=== PATIENT | female | born 1985 | race Caucasian/White ===

== ENCOUNTER 2017-01-13 08:07 | Emergency (ER) | payer BC, OTHER ==
[~2017-01-13] VITALS: Wt 71.9 kg
[2017-01-13] MEDS ORDERED: KETOROLAC 15 MG INJ IV STA (09:09)
[2017-01-13] MEDS ORDERED: ONDANSETRON 4 MG INJ IV STA (09:09)
--- NOTE | 2017-01-13 09:21 | ERD ---
ER Documentation Chief Complaint Date/Time DATE: 01/13/17 TIME: 09:18 Chief Complaint LEFT SIDE BACKPAIN WITH NAUSEA NO DYSURIA. NO VAG BLEED HPI Patient is a 31-year-old female who presents to the emergency department with left-sided flank pain which is radiating down into her left lower abdomen. Patient states that the pain started last night. Patient describes the pain to be constant and sharp in nature. She states her current pain level is 10 out of 10. Patient denies taking any medication. Patient does report nausea however she denies any vomiting. Patient is report chills however she denies any fevers. Patient states her last mental period was 1 month ago. Patient denies any active vaginal bleeding or vaginal discharge. Patient states her last bowel movement was this morning. She describes her bowel movements to be soft however denies any diarrhea. Patient states that she had Italian food last night for dinner. No recent travel. No recent antibiotics. No sick contacts. ROS All systems reviewed and are negative except as per history of present illness. Medications Home Meds Active Scripts Tamsulosin Hcl* (Flomax*) 0.4 Mg Cap.er.24h, 0.4 MG PO BID, #20 CAP Prov:AGUEDA LEZAMA PA-C 01/13/17 Ibuprofen* (Motrin*) 600 Mg Tab, 600 MG PO Q6, #30 TAB Prov:AGUEDA LEZAMA PA-C 01/13/17 Allergies Allergies: Coded Allergies: No Known Allergy (Unverified , 01/13/17) PMhx/Soc Medical and Surgical Hx: pt denies Surgical Hx History of Surgery: No Anesthesia Reaction: No Hx Neurological Disorder: No Hx Respiratory Disorders: No Hx Cardiac Disorders: No Hx Psychiatric Problems: Yes (Depression) Hx Alcohol Use: No Hx Substance Use: No Hx Tobacco Use: No Smoking Status: Never smoker Physical Exam Vitals Vital Signs Date Time Temp Pulse Resp B/P Pulse Ox O2 Delivery O2 Flow Rate FiO2 01/13/17 11:47 74 18 155/100 99 Room Air 01/13/17 08:15 98.0 80 21 155/89 99 Physical Exam GENERAL: Well-developed, well-nourished female. Appears in no acute distress. HEAD: Normocephalic, atraumatic. EYES: Pupils are equally reactive bilaterally. EOMs grossly intact. No conjunctival erythema. ENT: Moist mucous membranes. No uvula deviation. No kissing tonsils. NECK: Supple. No meningismus. Normal range of motion of the neck. LUNG: Clear to auscultation bilaterally. No rhonchi, wheezing, rales or coarse breath sounds. HEART: Regular rate and rhythm. No murmurs, rubs or gallops. ABDOMEN: No scars, ecchymosis or rashes noted. Soft and nondistended. +TTP in LLQ. Positive bowel sounds in all four quadrants. No rebound tenderness, no guarding. (-) McBurney's point tenderness. L CVA tenderness. BACK: No midline tenderness. EXTREMITIES: Equal pulses bilaterally. No peripheral clubbing, cyanosis or edema. No unilateral leg swelling. NEUROLOGIC: Alert and oriented. Moving all four extremities without any difficulty. Normal speech. Steady gait. SKIN: Normal color. Warm and dry. No rashes or lesions. Result Diagram: 01/13/1792401/13/1725 Results 24 hrs Laboratory Tests Test 01/13/17 09:25 Alanine Aminotransferase (ALT/SGPT) 23IU/L Albumin 4.4g/dl Albumin/Globulin Ratio 1.25 Alkaline Phosphatase 89IU/L Anion Gap 18 Aspartate Amino Transf (AST/SGOT) 18IU/L Basophils # 0.110^3/ul Basophils % 0.6% Blood Urea Nitrogen 12mg/dl Calcium Level 9.2mg/dl Carbon Dioxide Level 23mmol/L Chloride Level 103mmol/L Creatinine 0.73mg/dl Direct Bilirubin 0.00mg/dl Eosinophils # 0.110^3/ul Eosinophils % 0.7% Globulin 3.50g/dl Glucose Level 114mg/dl Hematocrit 41.0% Hemoglobin 13.9g/dl Indirect Bilirubin 0.2mg/dl Lipase 133U/L Lymphocytes # 2.410^3/ul Lymphocytes % 22.7% Mean Corpuscular Hemoglobin 29.4pg Mean Corpuscular Hemoglobin Concent 33.9g/dl Mean Corpuscular Volume 86.7fl Mean Platelet Volume 9.6fl Monocytes # 0.710^3/ul Monocytes % 6.7% Neutrophils # 7.110^3/ul Neutrophils % 68.7% Nucleated Red Blood Cells # 0.010^3/ul Nucleated Red Blood Cells % 0.0/100WBC Platelet Count 90530^3/UL Potassium Level 3.4mmol/L Red Blood Count 4.7310^6/ul Red Cell Distribution Width 12.1% Sodium Level 141mmol/L Total Bilirubin 0.2mg/dl Total Protein 7.9g/dl Urine Bacteria FEW Urine Bilirubin NEGATIVE Urine Clarity CLEAR Urine Color LT. YELLOW Urine Glucose NEGATIVE% Urine Hemoglobin 1+ Urine Ketones NEGATIVE Urine Leukocyte Esterase NEGATIVE Urine Microscopic RBC 0-2/HPF Urine Microscopic WBC 0-2/HPF Urine Nitrite NEGATIVE Urine Specific [place] 1.015 Urine Squamous Epithelial Cells FEW Urine Total Protein TRACE Urine Urobilinogen 0.2 E.U./dL Urine pH 7.0 White Blood Count 10.410^3/ul Current Medications Medications (Trade) Dose Ordered Sig/Barrie Route PRN Reason Start Time Stop Time Status Last Admin Dose Admin Ondansetron HCl (Zofran Inj) 4 mg ONCE STAT IV 01/13/17 09:09 01/13/17 09:11 DC 01/13/17 09:30 Ketorolac Tromethamine (Toradol) 15 mg ONCE STAT IV 01/13/17 09:09 01/13/17 09:11 DC 01/13/17 09:31 Procedures/MDM ED COURSE: The patient was stable throughout ED course. I kept the patient and/or family informed of laboratory and diagnostic imaging results throughout the ED course. DIAGNOSTIC IMAGING: Read by radiologist. DIAGNOSTIC IMAGING REPORT Patient: SHERIE THAO : 1985 Age: 31 Sex: F MR #: [id number] DOS: 01/13/17908 Ordering MD: AGUEDA LEZAMA PA-C Location: [facility] Room/Bed: PROCEDURE: CT Abdomen and Pelvis without contrast. CLINICAL INDICATION: Left flank pain. TECHNIQUE: Routine tomographic images of the abdomen and pelvis were obtained from the domes of the diaphragm to the symphysis pubis. The patient was scanned withoutoral or intravenous contrast. Coronal and sagittal reformatted images were obtained from the axial source images. Images were reviewed on a high-resolution PACS workstation. The total exam CTDI equals 17.87 mGy and the total exam DLP equals 1024.40 mGy-cm. One or more of the following dose reduction techniques were used: Automated exposure control, adjustment of the mA and / or kV according to patient size, or use of iterative reconstruction technique. COMPARISON: None. FINDINGS: The visualized portions of the lung bases are clear. Evaluation of the intra -abdominal solid organs is limited on this noncontrast examination. The liver appears normal in size. There is no intra or extrahepatic biliary dilatation. The gallbladder is unremarkable by CT criteria. The spleen, pancreas, and adrenal glands are unremarkable. The kidneys are symmetric in size. There is mild left hydronephrosis and proximal hydroureter. There is left perinephric fat stranding. There is a 3 mm calculus within the left proximal ureter, 4 cm distal to the left UPJ measuring approximately 620 HU. No additional renal, ureteral, or bladder calculi are identified. The urinary bladder is grossly unremarkable. The bowel demonstrates normal course and caliber. There is no evidence of bowel obstruction. The appendix is normal in appearance. There is trace free fluid in the pelvis. No intraperitoneal free air or abscess is identified. The uterus and adnexa are unremarkable. The aorta is normal in caliber. No retroperitoneal, mesenteric, or inguinal lymphadenopathy is identified. The osseous structures are unremarkable. No significant subcutaneous soft tissue abnormalities are seen. IMPRESSION: 1. Obstructing 3 mm calculus within the left proximal ureter, 4 cm distal to the left UPJ measuring 6 and 20 HU. There is mild left hydronephrosis, proximal hydroureter and left perinephric fat stranding. 2. No additional renal, ureteral or bladder calculi are seen. 3. Trace free fluid in the pelvis. RPTAT: HH .Hattie Hirsch MD, Date Time Electronically viewed and signed by .Hattie Hirsch MD, on 01/13/2017 11 :05 .G/ CC: AGUEDA LEZMAA PA-C PROCEDURES: None. MEDICATIONS GIVEN: Toradol, Zofran Patient tolerated medication well with no adverse reactions. Patient reported improvement in pain. MEDICAL DECISION MAKING: This is a 31-year-old female who presents with left-sided flank pain. Vital signs were reviewed. Patient is afebrile. Abdominal exam reveals left-sided CVA tenderness. CBC showed no evidence of systemic infection or severe anemia. CMP showed no evidence of electrolyte abnormalities, severe acidosis, alkalosis , renal failure, or liver disease.Lipase showed no evidence of acute pancreatitis. UA showed no evidence of acute infection or hematuria. Urine test was negative. CT abdomen pelvis showed obstructing 3 mm calculus within the left proximal ureter, 4 cm distal to the left UPJ measuring 6 and 20 HU. There is mild left hydronephrosis, proximal hydroureter and left perinephric fat stranding. No additional renal, ureteral or bladder calculi are seen. Trace free fluid in the pelvis. Patient was given Toradol and Zofran here in the emergency department. She states that this medication did help her symptoms. At this time, patient's presentation is most consistent with nephrolithiasis. I have a much lower clinical concern for acute coronary syndrome, mesenteric ischemia, lower lobe pneumonia, DKA, bowel perforation, bowel obstruction, cholecystitis, choledocholithiasis, ascending cholangitis, pancreatitis, PUD, gastritis, GERD, splenic rupture, diverticulitis, UTI, pyelonephritis, appendicitis, constipation, , ectopic . PRESCRIPTIONS: Flomax, Ibuprofen DISCHARGE: At this time, patient is stable for discharge and outpatient management. Patient was provided with a copy of all imaging and blood work today. She was advised to hydrate well. I have instructed the patient to follow-up with his/ her primary care physician in 1-2 days. Patient was advised that she may need to follow-up with the urologist for further management of her symptoms. I have instructed the patient to promptly return to the ER at any time for any new or worsening symptoms including increased pain, nausea, vomiting, diarrhea, fever, weakness or LOC. The patient and/or family expressed understanding of and agreement with this plan. All questions were answered. Home care instructions were provided. Departure Diagnosis: Primary Impression: Nephrolithiasis Condition: Stable Patient Instructions: Flank Pain, Uncertain Cause, Kidney Stone W/ Colic Referrals: COMMUNITY CLINICS YOU HAVE RECEIVED A MEDICAL SCREENING EXAM AND THE RESULTS INDICATE THAT YOU DO NOT HAVE A CONDITION THAT REQUIRES URGENT TREATMENT IN THE EMERGENCY DEPARTMENT. FURTHER EVALUATION AND TREATMENT OF YOUR CONDITION CAN WAIT UNTIL YOU ARE SEEN IN YOUR DOCTORS OFFICE WITHIN THE NEXT 1-2 DAYS. IT IS YOUR RESPONSIBILITY TO MAKE AN APPOINTMENT FOR FOLOW-UP CARE. IF YOU HAVE A PRIMARY DOCTOR --you should call your primary doctor and schedule an appointment IF YOU DO NOT HAVE A PRIMARY DOCTOR YOU CAN CALL OUR PHYSICIAN REFERRAL HOTLINE AT IF YOU CAN NOT AFFORD TO SEE A PHYSICIAN YOU CAN CHOSE FROM THE FOLLOWING [facility] [address] [facility] [address] [email or web address] [address] [facility] [address] [facility] [address] [facility]. [facility] [address] [facility]. [facility] YOU HAVE RECEIVED A MEDICAL SCREENING EXAM AND THE RESULTS INDICATE THAT YOU DO NOT HAVE A CONDITION THAT REQUIRES URGENT TREATMENT IN THE EMERGENCY DEPARTMENT. FURTHER EVALUATION AND TREATMENT OF YOUR CONDITION CAN WAIT UNTIL YOU ARE SEEN IN YOUR DOCTORS OFFICE WITHIN THE NEXT 1-2 DAYS. IT IS YOUR RESPONSIBILITY TO MAKE AN APPOINTMENT FOR FOLOW-UP CARE. IF YOU HAVE A PRIMARY DOCTOR --you should call your primary doctor and schedule and appointment IF YOU DO NOT HAVE A PRIMARY DOCTOR YOU CAN CALL OUR PHYSICIAN REFERRAL HOTLINE AT . IF YOU CAN NOT AFFORD TO SEE A PHYSICIAN YOU CAN CHOSE FROM THE FOLLOWING [facility] INSTITUTIONS: [facility] [address] [place] [address] [facility] [address] [place] [address] FORMERLY [facility] + [facility] [address] [place] [address] AGUEDA LEZAMA PA-C Jan 13, 2017 09:20
[2017-01-13 09:37] LABS: ADD SCAN DIFF NO
[2017-01-13 09:43] LABS: BASOPHIL # 0.1 10^3/ul (0.0-0.1); BASOPHILS % 0.6 % (0.0-2.0); EOSINOPHILS # 0.1 10^3/ul (0.0-0.5); EOSINOPHILS % 0.7 % (0.0-7.0); HEMOGLOBIN 13.9 g/dl (12.0-16.0); LYMPHOCYTES # 2.4 10^3/ul (0.8-2.9); LYMPHOCYTES % 22.7 % (15.0-51.0); MEAN CORPUSCULAR HEMOGLOBIN 29.4 pg (29.0-33.0); MEAN CORPUSCULAR HGB CONC 33.9 g/dl (32.0-37.0); MEAN CORPUSCULAR VOLUME 86.7 fl (82.0-101.0); MEAN PLATELET VOLUME 9.6 fl (7.4-10.4); MONOCYTE # 0.7 10^3/ul (0.3-0.9); MONOCYTES % 6.7 % (0.0-11.0); NEUTROPHIL # 7.1 10^3/ul (1.6-7.5); NEUTROPHILS % 68.7 % (39.0-77.0); PLATELET COUNT 290 10^3/UL (140-415); RED BLOOD COUNT 4.73 10^6/ul (4.20-5.40); RED CELL DISTRIBUTION WIDTH 12.1 % (11.5-14.5); WHITE BLOOD COUNT 10.4 10^3/ul (4.8-10.8)
[2017-01-13 09:47] LABS: ADD UMIC YES; URINE BILIRUBIN (Dip) NEGATIVE (NEGATIVE); URINE BLOOD (Dip) 1+ (NEGATIVE); URINE COLOR LT. YELLOW (YELLOW); URINE GLUCOSE (Dip) NEGATIVE (NEGATIVE); URINE KETONES (Dip) NEGATIVE (NEGATIVE); URINE LEUKOCYTE ESTERASE (Dip) NEGATIVE (NEGATIVE); URINE NITRITE (Dip) NEGATIVE (NEGATIVE); URINE TOTAL PROTEIN (Dip) TRACE (NEGATIVE); URINE UROBILINOGEN (Dip) 0.2 E.U./dL (0.1-1.0)
[2017-01-13 09:48] LABS: ALBUMIN 4.4 g/dl (3.3-4.9)
[2017-01-13 09:49] LABS: POTASSIUM 3.4 mmol/L (3.5-5.1)
[2017-01-13 09:51] LABS: BILIRUBIN,INDIRECT 0.2 mg/dl (0-1.1); BILIRUBIN,TOTAL 0.2 mg/dl (0.2-1.3); CREATININE 0.73 mg/dl (0.44-1.00)
[2017-01-13 09:52] LABS: ALBUMIN/GLOBULIN RATIO 1.25; CALCIUM 9.2 mg/dl (8.4-10.2); TOTAL PROTEIN 7.9 g/dl (6.1-8.1)
[2017-01-13 10:07] LABS: BACTERIA,URINE FEW; SQUAMOUS EPITHELIAL CELL,UR FEW; URINE RBCS 0-2 /HPF (0)
--- NOTE | 2017-01-13 11:06 | RADRPT ---
PROCEDURE: CT Abdomen and Pelvis without contrast. CLINICAL INDICATION: Left flank pain. TECHNIQUE: Routine tomographic images of the abdomen and pelvis were obtained from the domes of th e diaphragm to the symphysis pubis. The patient was scanned withoutoral or intravenous contrast. C oronal and sagittal reformatted images were obtained from the axial source images. Images were revie wed on a high-resolution PACS workstation. The total exam CTDI equals 17.87 mGy and the total exam D LP equals 1024.40 mGy-cm. One or more of the following dose reduction techniques were used: Automa olivier exposure control, adjustment of the mA and / or kV according to patient size, or use of iterativ e reconstruction technique. COMPARISON: None. FINDINGS: The visualized portions of the lung bases are clear. Evaluation of the intra-abdominal solid org ans is limited on this noncontrast examination. The liver appears normal in size. There is no intr a or extrahepatic biliary dilatation. The gallbladder is unremarkable by CT criteria. The spleen, pancreas, and adrenal glands are unremarkable. The kidneys are symmetric in size. There is mild left hydronephrosis and proximal hydroureter. Ther e is left perinephric fat stranding. There is a 3 mm calculus within the left proximal ureter, 4 cm distal to the left UPJ measuring approximately 620 HU. No additional renal, ureteral, or bladder c alculi are identified. The urinary bladder is grossly unremarkable. The bowel demonstrates normal course and caliber. There is no evidence of bowel obstruction. The appendix is normal in appearance. There is trace free fluid in the pelvis. No intraperitoneal free air or abscess is identified. The uterus and adnexa are unremarkable. The aorta is normal in calib er. No retroperitoneal, mesenteric, or inguinal lymphadenopathy is identified. The osseous structures are unremarkable. No significant subcutaneous soft tissue abnormalities are seen. IMPRESSION: 1. Obstructing 3 mm calculus within the left proximal ureter, 4 cm distal to the left UPJ measuring 6 and 20 HU. There is mild left hydronephrosis, proximal hydroureter and left perinephric fat stra nding. 2. No additional renal, ureteral or bladder calculi are seen. 3. Trace free fluid in the pelvis. RPTAT: HH .Hattie Hirsch MD, MD Date Time Electronically viewed and signed by .Hattie Hirsch MD, MD on 01/13/2017 11:05 .G/
[2017-01-13] MEDS ORDERED: IBUP-1542 PO (11:26)
[2017-01-13] MEDS ORDERED: TAMS-14 PO (11:26)
[2017-01-13 11:47] VITALS: BP 155/100; PULSE 74; RESP 18
== END 2017-01-13 11:48 | disposition home or self-care (01) ==
LOC: FTE 08:07
DX: N20.0 Calculus of kidney (principal); R11.0 Nausea
CPT/HCPCS: 36415; 74176; 80053; 81001; 83690; 85025; 96374; 96375; 99285; J1885; J2405; 81003